=== PATIENT | female | born 1945 | race Caucasian/White ===

== ENCOUNTER 2017-03-12 12:32 | Emergency (ER) | payer OTHER ==
[~2017-03-12 12:32] MED LIST: ACET PO; AMOXICILLIN500 MG PO; ASPIRIN81 M1 PO; ATIVAN2 MG; ATIVAN2 MG PO; B12; BUTALBITAL PO; CALCIUM500 M1 PO; CARAFATE1 G1 PO; CARVEDILOL6.25 MG; CARVEDILOL6.25 MG PO; CHEWABLE ASPIRI81 MG PO; CIPROFLOXACIN500 MG PO; COREG12.5 M1 PO; COREG6.25 MG; COREG6.25 MG PO; CYMBALTA60 MG; CYMBALTA60 MG PO; DIFLUCAN150 MG PO; EXELON4.6 MG/24 TD; FISH OIL 10001000 MG; FISH OIL1 IU PO; FOLIC ACID1 MG PO; FOLIC ACID800 MCG; HYDROCODONE BIT1 T11 PO; IRON325 M1 PO; KLONOPIN1 MG PO; LORAZEPAM1 MG PO; MACROBID100 M1 PO; MAGNESIUM250 M2 PO; NORCO 5-325 TA1 EACH PO; OMEPRAZOLE DR20 MG PO; PRAVACHOL; PRAVACHOL40 MG PO; PRILOSEC40 MG PO; PRINIVIL10 MG PO; PROTONIX40 MG PO; RESTASIS0.05% OP; ST. JOSEPH81 MG; TRAMADOL HCL50 MG PO; VICODIN 5/500 505 MG; VICODIN ES 7501 TAB PO; VIT D; VITAMIN D1000 IU PO; VITAMIN D2000 IU PO; VITAMIN D5000 I1 PO; ZANTAC 150150 MG PO; ZANTAC150 MG PO; ZOFRAN4 MG PO; Zofran4 MG PO; [UNRECOGNIZED DRUG - OTHER]
[2017-03-12] MEDS ORDERED: PREDNISONE5 MG PO (12:37)
[2017-03-12] MEDS ORDERED: DULOXETINE HCL60 MG PO (12:38)
[2017-03-12 13:09] LABS: BASO % 0.6 % (0.0-1.0); EOS # 0.1 10*3/uL (0.0-0.4); EOS % 1.5 % (1.0-4.0); HEMATOCRIT 32.3 % (37.0-47.0); HEMOGLOBIN 10.6 g/dl (12.0-16.0); LYMPH # 1.4 10*3/uL (1.3-4.4); LYMPH % 18.8 % (27.0-41.0); MEAN CELL VOLUME 100.9 fl (81.0-99.0); MEAN CORPUSCULAR HGB 33.1 pg (27.0-31.0); MEAN CORPUSCULAR HGB CONC 32.8 g/dl (33.0-37.0); MEAN PLATELET VOLUME 9.6 fl (9.6-12.3); MONO # 0.5 10*3/uL (0.1-1.0); MONO % 7.1 % (3.0-9.0); NEUT # 5.2 10*3/uL (2.3-7.9); NEUT % 71.7 % (47.0-73.0); PLATELET COUNT AUTOMATED 265 10*3/uL (130-400); RED CELL DISTRI WIDTH 11.8 % (0-14.5); WHITE BLOOD COUNT 7.2 10*3/uL (4.8-10.8)
[2017-03-12 13:18] LABS: INTERNATIONAL NORM RATIO 1.1 (2.0-3.5); PROTHROMBIN TIME 11.4 SECONDS (9.0-12.4)
[2017-03-12 13:28] LABS: ALBUMIN 4.1 gm/dl (3.1-4.5); ALKALINE PHOSPHATASE 52 U/L (45-117); BILIRUBIN, TOTAL 0.6 mg/dl (0.2-1.0); BUN 10 mg/dl (7-24); CARBON DIOXIDE 30 mmol/L (21-32); CHLORIDE 101 mmol/L (98-107); CKMB 2.9 ng/ml (0.5-3.6); CPK 93 U/L (26-192); EST GLOM FILT AFRICAN AMERICAN > 60 ml/min; GLUCOSE 100 mg/dL (65-99); MAGNESIUM 2.2 mg/dL (1.5-2.1); POTASSIUM 3.8 mmol/L (3.5-5.1); SGOT/AST 24 IU/L (3-35); SGPT/ALT 21 U/L (12-78); SODIUM 138 mmol/L (136-145); TOTAL PROTEIN 6.6 gm/dL (6.4-8.2)
[2017-03-12 13:31] LABS: C-REACTIVE PROTEIN < 0.29 MG/DL (0-0.3); TROPONIN I < 0.015 ng/ml (<0.045)
[2017-03-12] MEDS ORDERED: ZOFRAN ODT4 MG SL (14:41)
== END 2017-03-12 14:48 | disposition home or self-care (01) ==
LOC: ED 12:32
PROVIDERS: Emergency Medicine
DX: S06.0X0A Concussion without loss of consciousness, initial encounter (principal); F17.200 Nicotine dependence, unspecified, uncomplicated; Z88.2 Allergy status to sulfonamides; Z88.6 Allergy status to analgesic agent; W22.8XXA Striking against or struck by other objects, initial encounter; Y93.89 Activity, other specified; Y92.9 Unspecified place or not applicable; Y99.9 Unspecified external cause status

== ENCOUNTER 2017-04-07 11:55 | Emergency (ER) | payer OTHER ==
[~2017-04-07 11:55] MED LIST changes: +DULOXETINE HCL60 MG PO; +PREDNISONE5 MG PO; +ZOFRAN ODT4 MG SL
[2017-04-07 14:53] LABS: BASO % 0.1 % (0.0-1.0); EOS # 0.2 10*3/uL (0.0-0.4); EOS % 2.3 % (1.0-4.0); HEMOGLOBIN 6.7 g/dl (12.0-16.0); IG # 0.1 10*3/uL (0.0-0.1); LYMPH # 1.8 10*3/uL (1.3-4.4); LYMPH % 18.3 % (27.0-41.0); MEAN CELL VOLUME 103.4 fl (81.0-99.0); MEAN CORPUSCULAR HGB CONC 31.9 g/dl (33.0-37.0); MEAN PLATELET VOLUME 9.6 fl (9.6-12.3); MONO # 1.2 10*3/uL (0.1-1.0); MONO % 12.4 % (3.0-9.0); NEUT # 6.4 10*3/uL (2.3-7.9); NEUT % 66.4 % (47.0-73.0); PLATELET COUNT AUTOMATED 253 10*3/uL (130-400); RED BLOOD COUNT 2.03 10*6/uL (4.10-5.10); RED CELL DISTRI WIDTH 11.9 % (0-14.5); WHITE BLOOD COUNT 9.6 10*3/uL (4.8-10.8)
[2017-04-07 15:12] LABS: ALBUMIN 3.5 gm/dl (3.1-4.5); ALKALINE PHOSPHATASE 65 U/L (45-117); BILIRUBIN, TOTAL 0.3 mg/dl (0.2-1.0); BUN 15 mg/dl (7-24); CARBON DIOXIDE 30 mmol/L (21-32); CHLORIDE 100 mmol/L (98-107); EST GLOM FILT AFRICAN AMERICAN > 60 ml/min; GLUCOSE 106 mg/dL (65-99); POTASSIUM 4.3 mmol/L (3.5-5.1); SGOT/AST 26 IU/L (3-35); SGPT/ALT 29 U/L (12-78); SODIUM 138 mmol/L (136-145); TOTAL PROTEIN 6.1 gm/dL (6.4-8.2)
== END 2017-04-07 17:17 | disposition short-term general hospital (02) ==
LOC: ED 11:55
PROVIDERS: Nurse Practitioner Family
DX: S92.001A Unspecified fracture of right calcaneus, initial encounter for closed fracture (principal); S82.831A Other fracture of upper and lower end of right fibula, initial encounter for closed fracture; D64.9 Anemia, unspecified; M54.2 Cervicalgia; R51 Headache; Z88.1 Allergy status to other antibiotic agents; Z88.6 Allergy status to analgesic agent; Z79.899 Other long term (current) drug therapy; M25.551 Pain in right hip; W11.XXXA Fall on and from ladder, initial encounter; Y93.9 Activity, unspecified; Y92.9 Unspecified place or not applicable; Y99.9 Unspecified external cause status

== ENCOUNTER 2017-04-12 16:43 | Inpatient (IN) | payer OTHER ==
[2017-04-12] VITALS (9 sets, daily range): BP systolic 100–128; BP diastolic 50–62
[~2017-04-12] VITALS: Ht 160 cm; Wt 43.2 kg
--- NOTE | ~2017-04-12 | CON ---
[place], [place] REPORT OF CONSULTATION NAME: KAMILA MICHAELS UNIT #: [id number] ROOM: 411 DOCTOR: YAZAN REHMANJAE BIRTHDATE: [birth year] DOS: HISTORY OF PRESENT ILLNESS: A 71-year-old patient who presented with chief complaint of abdominal pain, epigastric distress, falling episode. She had CT scan of the head done. No intracranial pathology. Lumbar spine, multilevel degenerative changes, laminectomies. CBC differential, H and H has been as low as 6 and 21, macrocytic. Comprehensive metabolic panel: BUN and creatinine 15 and 1.0. Venous extremities study has been complex Escobedo's cyst, 4 x 2, no evidence of DVT, status post transfusion to 8 and 24, troponin negative. INR 1.1. Chest x-ray, no pneumonia. PAST MEDICAL HISTORY: Weakness, hypercholesterolemia, anemia, hypertension, hyperlipidemia, cervical fractures. PAST SURGICAL HISTORY: Laminectomy, D and C, thyroidectomy. SOCIAL HISTORY: Nonsmoker, nonalcohol consumer. FAMILY HISTORY: Noncontributory. ALLERGIES: ____ medications, SULFA AND IBUPROFEN. MEDICATIONS: List has been reviewed. REVIEW OF SYSTEMS: HEENT: Denies double vision, blurred vision. RESPIRATORY: Denies acute shortness of breath. CARDIOVASCULAR: Denies acute chest pain. PHYSICAL EXAMINATION: HEENT: Head normocephalic, nontraumatic. Mouth and buccal mucosa benign. NECK: Supple, no thyromegaly. CHEST: Symmetric anatomy. LUNGS: Few scattered rhonchi. HEART: Normal sinus rhythm, no gallop, no murmur. ABDOMEN: Soft. No hepato-organomegaly. Bowel sounds present. No pulsatile masses. EXTREMITIES: Trace pedal edema and few scratch williamson. NEUROLOGIC: Alert, oriented, slow. Labs reviewed, records reviewed, data reviewed. IMPRESSION: Severe anemia, macrocytic in origin. LABORATORY DATA: Has been reviewed. Records have been reviewed. She is status post transfusion. B12 and folate have been normal. Comprehensive metabolic panel has not shown any acute pathology except for slight bilirubin elevation to 1.9. PT/INR again 1.1, platelet count 264, lipase normal. Lactic acid normal. We will organize the thyroid study on her. [place], [place] REPORT OF CONSULTATION NAME: KAMILA MICHAELS UNIT #: [id number] ROOM: 411 DOCTOR: YAZAN REHMAN,JAE BIRTHDATE: [birth year] JAE HAND MD CM:CONSTR:REPORT OF CONSULTATION 1441 04/14/17 0106 interface
--- NOTE | ~2017-04-12 | O ---
[place], [place] OPERATIVE NOTE NAME: KAMILA MICHAELS UNIT #: [id number] ROOM: 411 DOCTOR: YAZAN REHMAN,JAE BIRTHDATE: [birth year] DOS: INDICATION: This is a 71-year-old patient who has presented with chief complaint of epigastric abdominal pain, anemia, undergoing investigation. The patient's indices have been macrocytic. The patient has sustained a falling episode and simultaneously was found to be anemic. PROCEDURE: Today's procedure part of investigation is panendoscopy plus biopsy. PREMEDICATION: Versed and Diprivan. SCOPE: Olympus forward-viewing gastroscope Q10 video. REPORT: After putting the patient in the left lateral position and after application of lubricant to the scope, the scope was introduced. Thereafter, under direct visualization, I advanced through the length of esophagus without difficulty. Gastric pouch was entered. Gastritis and gastric erosions seen. Duodenal bulb, second and third part within normal limits. The patient extubated after antral biopsy and tolerated procedure well. IMPRESSION: Atrophic gastritis, status post biopsy of gastric erosions. PLAN AND DISCUSSION: Soft diet, Ensure 1 can ____ meals, Protonix 40 mg daily p.o. Outpatient follow up for future colonoscopy. Thank you very much indeed. I recommended thyroid study to be done and this would be ordered. JAE HAND MD CM:OPRECORD:OPERATIVE NOTE [id number] JAE HAND MD 04/13/17 1830 interface
[2017-04-12] MEDS ORDERED: PREDNISONE5 MG PO (16:46)
[2017-04-12] MEDS ORDERED: CARVEDILOL12.5 MG PO (16:47)
[2017-04-12 17:08] LABS: MEAN CELL VOLUME 101.3 fl (81.0-99.0); MEAN CORPUSCULAR HGB 31.6 pg (27.0-31.0); MEAN CORPUSCULAR HGB CONC 31.2 g/dl (33.0-37.0); MEAN PLATELET VOLUME 9.4 fl (9.6-12.3); PLATELET COUNT AUTOMATED 258 10*3/uL (130-400); RED BLOOD COUNT 1.55 10*6/uL (4.10-5.10); RED CELL DISTRI WIDTH 12.5 % (0-14.5)
[2017-04-12 17:13] LABS: HEMATOCRIT 15.7 % (37.0-47.0); HEMOGLOBIN 4.9 g/dl (12.0-16.0)
[2017-04-12 17:23] LABS: BUN 12 mg/dl (7-24); CARBON DIOXIDE 26 mmol/L (21-32); CHLORIDE 100 mmol/L (98-107); EST GLOM FILT AFRICAN AMERICAN > 60 ml/min; GLUCOSE 129 mg/dL (65-99); SODIUM 138 mmol/L (136-145)
[2017-04-12 17:35] LABS: LYMPHOCYTE # 0.5 10*3/uL (1.3-4.4); MONOCYTE # 0.9 10*3/uL (0.1-1.0); NEUTROPHIL # 4.6 10*3/uL (2.3-7.9); NEUTROPHILS 76 % (47-73); TOTAL CELLS COUNTED 100 #CELLS
[2017-04-12 17:36] LABS: HYPOCHROMIA MODERATE; PLATELET SUFFICIENCY NORMAL (NORMAL); POLYCHROMASIA SLIGHT
[2017-04-12 18:11] LABS: INTERNATIONAL NORM RATIO 1.1 (2.0-3.5); PROTHROMBIN TIME 11.3 SECONDS (9.0-12.4)
[2017-04-13] VITALS (9 sets, daily range): BP systolic 108–130; BP diastolic 50–57
[2017-04-13 01:29] LABS: HEMATOCRIT 23.9 % (37.0-47.0)
[2017-04-13 05:58] LABS: BASO % 0.3 % (0.0-1.0); EOS # 0.1 10*3/uL (0.0-0.4); EOS % 1.2 % (1.0-4.0); HEMATOCRIT 24.6 % (37.0-47.0); HEMOGLOBIN 8.2 g/dl (12.0-16.0); LYMPH # 0.7 10*3/uL (1.3-4.4); MEAN CORPUSCULAR HGB 30.8 pg (27.0-31.0); MEAN CORPUSCULAR HGB CONC 33.3 g/dl (33.0-37.0); MEAN PLATELET VOLUME 9.6 fl (9.6-12.3); MONO # 0.9 10*3/uL (0.1-1.0); MONO % 11.6 % (3.0-9.0); NEUT # 5.8 10*3/uL (2.3-7.9); NEUT % 77.4 % (47.0-73.0); PLATELET COUNT AUTOMATED 264 10*3/uL (130-400); RED BLOOD COUNT 2.66 10*6/uL (4.10-5.10); RED CELL DISTRI WIDTH 16.8 % (0-14.5); RETICULOCYTE % 4.88 % (0.50-2.50); WHITE BLOOD COUNT 7.4 10*3/uL (4.8-10.8)
[2017-04-13 06:01] LABS: IRF 30.8 % (2.4-13.3); MEAN CELL VOLUME 92.5 fl (81.0-99.0); RET-He 26.2 pg (32.1-37.9)
[2017-04-13 06:12] LABS: HEMOGLOBIN A1c 4.9 % (4.8-5.6)
[2017-04-13 06:30] LABS: ALBUMIN 2.6 gm/dl (3.1-4.5); ALKALINE PHOSPHATASE 60 U/L (45-117); BILIRUBIN, TOTAL 1.9 mg/dl (0.2-1.0); BUN 11 mg/dl (7-24); CARBON DIOXIDE 26 mmol/L (21-32); CHLORIDE 100 mmol/L (98-107); CHOLESTEROL 128 mg/dL (<200); EST GLOM FILT AFRICAN AMERICAN > 60 ml/min; GLUCOSE 81 mg/dL (65-99); HDL CHOLESTEROL 53 mg/dl (40-60); INTERNATIONAL NORM RATIO 1.1 (2.0-3.5); IRON 149 ug/dL (50-170); LDL CHOLESTEROL 55 mg/dL (9-159); MAGNESIUM 1.9 mg/dL (1.5-2.1); PHOSPHOROUS 2.7 mg/dL (2.5-4.9); POTASSIUM 3.9 mmol/L (3.5-5.1); PROTHROMBIN TIME 11.2 SECONDS (9.0-12.4); SGOT/AST 30 IU/L (3-35); SGPT/ALT 24 U/L (12-78); SODIUM 135 mmol/L (136-145); TOTAL PROTEIN 5.5 gm/dL (6.4-8.2); TRIGLYCERIDES 100 mg/dl (<150); VLDL CHOLESTEROL 20 mg/dL (6-40)
[2017-04-13 07:14] LABS: FERRITIN 241.5 ng/mL (10.0-291.0); VITAMIN D, 25-HYDROXY 91.8 ng/mL (30-100)
[2017-04-13 07:15] LABS: FOLIC ACID 11.24 ng/mL (>5.38)
[2017-04-14] VITALS: BP 146/71
[2017-04-14 06:04] LABS: BASO % 0.3 % (0.0-1.0); EOS % 0.1 % (1.0-4.0); HEMATOCRIT 26.1 % (37.0-47.0); HEMOGLOBIN 8.5 g/dl (12.0-16.0); LYMPH # 0.6 10*3/uL (1.3-4.4); LYMPH % 8.2 % (27.0-41.0); MEAN CELL VOLUME 94.2 fl (81.0-99.0); MEAN CORPUSCULAR HGB 30.7 pg (27.0-31.0); MEAN CORPUSCULAR HGB CONC 32.6 g/dl (33.0-37.0); MEAN PLATELET VOLUME 10.1 fl (9.6-12.3); MONO # 0.7 10*3/uL (0.1-1.0); MONO % 9.7 % (3.0-9.0); NEUT # 5.9 10*3/uL (2.3-7.9); NEUT % 81.1 % (47.0-73.0); PLATELET COUNT AUTOMATED 307 10*3/uL (130-400); RED BLOOD COUNT 2.77 10*6/uL (4.10-5.10); RED CELL DISTRI WIDTH 16.2 % (0-14.5); WHITE BLOOD COUNT 7.2 10*3/uL (4.8-10.8)
[2017-04-14 06:18] LABS: ALBUMIN 2.7 gm/dl (3.1-4.5); ALKALINE PHOSPHATASE 66 U/L (45-117); BILIRUBIN, TOTAL 1.3 mg/dl (0.2-1.0); BUN 13 mg/dl (7-24); CARBON DIOXIDE 27 mmol/L (21-32); CHLORIDE 98 mmol/L (98-107); EST GLOM FILT AFRICAN AMERICAN > 60 ml/min; GLUCOSE 107 mg/dL (65-99); MAGNESIUM 1.9 mg/dL (1.5-2.1); POTASSIUM 4.2 mmol/L (3.5-5.1); SGOT/AST 29 IU/L (3-35); SGPT/ALT 27 U/L (12-78); SODIUM 133 mmol/L (136-145); TOTAL PROTEIN 5.6 gm/dL (6.4-8.2)
[2017-04-14 06:22] LABS: FREE THYROXIN INDEX/T7 1.9 (1.5-5.4); T3 UPTAKE 33 % (31-39); THYROID STIM HORMONE (HS) 0.689 uIU/ml (0.358-4.75)
[2017-04-14 08:00] VITALS: BP 124/64
[2017-04-14 12:00] VITALS: BP 118/74
[2017-04-14 16:00] VITALS: BP 138/67
[2017-04-14 20:00] VITALS: BP 137/63
[2017-04-15] VITALS: BP 100/80
[2017-04-15 06:11] LABS: BASO % 0.2 % (0.0-1.0); EOS % 0.1 % (1.0-4.0); HEMATOCRIT 27.1 % (37.0-47.0); HEMOGLOBIN 8.8 g/dl (12.0-16.0); LYMPH % 11.9 % (27.0-41.0); MEAN CELL VOLUME 95.8 fl (81.0-99.0); MEAN CORPUSCULAR HGB 31.1 pg (27.0-31.0); MEAN CORPUSCULAR HGB CONC 32.5 g/dl (33.0-37.0); MEAN PLATELET VOLUME 10.1 fl (9.6-12.3); MONO % 12.1 % (3.0-9.0); NEUT # 6.3 10*3/uL (2.3-7.9); NEUT % 75.5 % (47.0-73.0); PLATELET COUNT AUTOMATED 346 10*3/uL (130-400); RED BLOOD COUNT 2.83 10*6/uL (4.10-5.10); RED CELL DISTRI WIDTH 16.2 % (0-14.5); WHITE BLOOD COUNT 8.4 10*3/uL (4.8-10.8)
[2017-04-15 06:46] LABS: ALBUMIN 2.8 gm/dl (3.1-4.5); ALKALINE PHOSPHATASE 66 U/L (45-117); BILIRUBIN, TOTAL 1.2 mg/dl (0.2-1.0); BUN 10 mg/dl (7-24); CARBON DIOXIDE 28 mmol/L (21-32); CHLORIDE 102 mmol/L (98-107); EST GLOM FILT AFRICAN AMERICAN > 60 ml/min; GLUCOSE 91 mg/dL (65-99); POTASSIUM 4.4 mmol/L (3.5-5.1); SGOT/AST 24 IU/L (3-35); SGPT/ALT 26 U/L (12-78); SODIUM 139 mmol/L (136-145); TOTAL PROTEIN 5.8 gm/dL (6.4-8.2)
[2017-04-15 08:00] VITALS: BP 121/61
[2017-04-15] MEDS ORDERED: PANTOPRAZOLE SO40 MG PO (08:01)
[2017-04-15] MEDS ORDERED: PREDNISONE5 MG PO ×2 (08:01)
== END 2017-04-15 09:49 | disposition short-term general hospital (02) | DRG 604 ==
LOC: ED 16:43 → 4E 19:37 → EDHOLD 19:37 → ICCU 20:06 → 4E 20:17
PROVIDERS: Internal Medicine; Internal Medicine Hospice and Palliative Medicine; Physician Assistant; Student in an Organized Health Care Education/Training Program
PROC: 30233N1 Transfusion of Nonautologous Red Blood Cells into Peripheral Vein, Percutaneous Approach (ICD-10-PCS; 2017-04-12)
PROC: 0DB68ZX Excision of Stomach, Via Natural or Artificial Opening Endoscopic, Diagnostic (ICD-10-PCS; principal; 2017-04-13)
DX: S70.01XA Contusion of right hip, initial encounter (principal); E43 Unspecified severe protein-calorie malnutrition; E87.1 Hypo-osmolality and hyponatremia; Z68.1 Body mass index [BMI] 19.9 or less, adult; D50.9 Iron deficiency anemia, unspecified; S90.122A Contusion of left lesser toe(s) without damage to nail, initial encounter; R73.9 Hyperglycemia, unspecified; E83.51 Hypocalcemia; I10 Essential (primary) hypertension; K27.9 Peptic ulcer, site unspecified, unspecified as acute or chronic, without hemorrhage or perforation; G89.29 Other chronic pain; E78.5 Hyperlipidemia, unspecified; K29.40 Chronic atrophic gastritis without bleeding; E78.00 Pure hypercholesterolemia, unspecified; R27.0 Ataxia, unspecified; E80.6 Other disorders of bilirubin metabolism; M71.22 Synovial cyst of popliteal space [Baker], left knee; E89.0 Postprocedural hypothyroidism; Z82.0 Family history of epilepsy and other diseases of the nervous system; Z88.2 Allergy status to sulfonamides; Z88.6 Allergy status to analgesic agent; Z79.899 Other long term (current) drug therapy; S92.001G Unspecified fracture of right calcaneus, subsequent encounter for fracture with delayed healing; S82.831G Other fracture of upper and lower end of right fibula, subsequent encounter for closed fracture with delayed healing

== ENCOUNTER 2017-11-21 16:38 | Inpatient (IN) | payer OTHER ==
[~2017-11-21] VITALS: Ht 160 cm; Wt 42.8 kg
[2017-11-21] VITALS (11 sets, daily range): BP systolic 100–135; BP diastolic 51–72
--- NOTE | ~2017-11-21 | O ---
[place], [place] OPERATIVE NOTE NAME: KAMILA MICHAELS UNIT #: [id number] ROOM: 402 DOCTOR: YAZAN REHMANJAE BIRTHDATE: [birth year] DOS: 11/23/2017 INDICATIONS: This is a 72-year-old patient who is presenting with a chief complaint of GI bleed, black tarry stool, severe anemia, hemoglobin of 3, hematocrit of 17, status post multi-transfusion and stabilization. Troponin negative. The patient has been taking iron infusions as outpatient. She is telling us she is not on any blood thinners. She had a panel of blood work done, transfusion done, stabilized and the latest H and H has improved to 9 and 28 with reticulocyte of 3.36. Her comprehensive metabolic panel, electrolyte balance, liver function test normal. BUN and creatinine within normal limits. PAST MEDICAL HISTORY: Associated with anxiety, GERD, hypercholesterolemia, history of peptic ulcer disease, history of nicotine, depression, chronic pain, essential hypertension. PAST SURGICAL HISTORY: Laminectomy, thyroidectomy, D and C. FAMILY HISTORY: Noncontributory. ALLERGIES: SULFA AND IBUPROFEN. MEDICATIONS: List has been reviewed. She has been on famotidine and Sucralfate 1 g q.i.d. PROCEDURE: Today's procedure part of investigation is panendoscopy and colonoscopy. PREMEDICATION: Versed and Diprivan. SCOPE: Olympus forward-viewing gastroscope Q10 video. REPORT: After putting the patient in left lateral position and application of lubricant to the scope, the scope was introduced. Thereafter, under direct visualization, advanced through the length of esophagus without difficulty. There is no evidence of varicosities or bleeding in the esophagus. Gastric pouch was entered. Multiple small ulcerations, which signifies that the patient most likely has been taking some kind of nonsteroidal anti-inflammatories or aspirin products. Photographed biopsy from margin of 1 was obtained. Duodenal bulb, second and third part within normal limit. The patient extubated, tolerated procedure well. IMPRESSION: Multiple small antral ulcerations and erosions. PLAN AND DISCUSSION: We are going to proceed with colonoscopy. The patient presents with anemia, undergoing investigation. The patient has been found to have multiple small antral ulceration, erosions. Today's [place], [place] OPERATIVE NOTE NAME: KAMILA MICHAELS UNIT #: [id number] ROOM: 402 DOCTOR: YAZAN REHMAN,JAE BIRTHDATE: [birth year] procedure part of investigation is colonoscopy. PREMEDICATION: Versed and Diprivan. SCOPE: Olympus folding colonoscope 10L video. REPORT: After putting the patient in left lateral position and application of lubricant to the scope, the scope was introduced. Thereafter, under direct visualization, advanced through the length of colon with difficulty. Difficulty being severe tortuosity of sigmoid colon, splenic colon and particularly hepatic flexure. Base of cecum; however, approach, appendiceal orifice identified, photographed. Air was suctioned out. Gradually, patient extubated, tolerated procedure well. IMPRESSION: Diverticulosis, severe tortuosity of the colon. Otherwise, no gross pathology was identified to be responsible for blood loss anemia. PLAN AND DISCUSSION: We are going to observe follow up H and H. We are going to assure adequate supplementation of iron supply. Her reticulocyte count has been normal. Her guaiac has been positive most likely because of the upper GI contribution to bleeding. Lactic acid has been normal, folate and B12 are within normal limits. Unfortunately, we do not have a serum iron level. This is going to be organized. Thank you very much indeed. As far as the source of GI bleed and blood loss, so far upper GI has to be considered responsible for the chronic blood loss. The possibility of a small bowel angiodysplastic lesion cannot be ruled out. Once patient on adequate PPI or H2 erin to eradicate ulcers. If she continues to have manifestation of anemia, then a capsule endoscopy of the small bowel is going to be organized. At the present time, we are going to continue with Carafate and we are going to increase her Pepcid to 40 mg b.i.d. JAE HAND MD CM:OPRECORD:OPERATIVE NOTE [id number] JAE HAND MD 11/23/17 1320 interface
[~2017-11-21 16:38] MED LIST changes: +CARVEDILOL12.5 MG PO; +PANTOPRAZOLE SO40 MG PO
[2017-11-21 17:28] LABS: HEMATOCRIT 13.2 % (37.0-47.0); HEMOGLOBIN 3.8 g/dl (12.0-16.0)
[2017-11-21 17:31] LABS: ACT PARTIAL THROMBO TIME 24.7 SECONDS (20.8-31.5); INTERNATIONAL NORM RATIO 1.2 (2.0-3.5)
[2017-11-21 17:45] LABS: ALBUMIN 3.4 gm/dl (3.1-4.5); CREATININE 1.23 mg/dL (0.55-1.02); POTASSIUM 4.2 mmol/L (3.5-5.1); TOTAL PROTEIN 6.1 gm/dL (6.4-8.2)
[2017-11-21] MEDS ORDERED: PEPCID20 MG PO (19:22)
[2017-11-21] MEDS ORDERED: CARAFATE1 GM PO (19:23)
[2017-11-21] MEDS ORDERED: LISINOPRIL20 MG PO (19:24)
[2017-11-21] MEDS ORDERED: RESTASIS1 EACH OP (19:24)
[2017-11-21] MEDS ORDERED: COREG12.5 M1 PO (19:24)
[2017-11-21] MEDS ORDERED: MULTIVITAMINS1 EAC5 PO (19:25)
[2017-11-21] MEDS ORDERED: VITAMIN B COMP1 EAC1 PO (19:26)
[2017-11-21] MEDS ORDERED: VITAMIN C500 M6 PO (19:26)
[2017-11-21] MEDS ORDERED: ALEVE220 MG PO (19:28)
[2017-11-21] MEDS ORDERED: TYLENOL325 M2 PO (19:28)
[2017-11-22] VITALS (12 sets, daily range): BP systolic 81–134; BP diastolic 41–74
[2017-11-22 02:17] LABS: BASO % 0.2 % (0.0-1.0); EOS # 0.2 10*3/uL (0.0-0.4); EOS % 2.3 % (1.0-4.0); LYMPH # 1.3 10*3/uL (1.3-4.4); LYMPH % 14.1 % (27.0-41.0); MEAN CORPUSCULAR HGB 26.5 pg (27.0-31.0); MEAN PLATELET VOLUME 10.1 fl (9.6-12.3); MONO % 10.8 % (3.0-9.0); NEUT # 6.7 10*3/uL (2.3-7.9); NEUT % 72.1 % (47.0-73.0); NUCLEATED RED BLOOD CELL 0.2 % (0.0-0.0); PLATELET COUNT AUTOMATED 259 10*3/uL (130-400); RED BLOOD COUNT 2.64 10*6/uL (4.10-5.10); RED CELL DISTRI WIDTH 16.5 % (0-14.5); WHITE BLOOD COUNT 9.3 10*3/uL (4.8-10.8)
[2017-11-22 02:18] LABS: HEMATOCRIT 21.9 % (37.0-47.0)
[2017-11-22 07:59] LABS: BASO % 0.2 % (0.0-1.0); EOS # 0.2 10*3/uL (0.0-0.4); EOS % 3.3 % (1.0-4.0); HEMATOCRIT 21.6 % (37.0-47.0); HEMOGLOBIN 7.1 g/dl (12.0-16.0); LYMPH # 0.9 10*3/uL (1.3-4.4); MEAN CELL VOLUME 82.4 fl (81.0-99.0); MEAN CORPUSCULAR HGB 27.1 pg (27.0-31.0); MEAN CORPUSCULAR HGB CONC 32.9 g/dl (33.0-37.0); MONO # 0.6 10*3/uL (0.1-1.0); MONO % 11.7 % (3.0-9.0); NEUT # 3.5 10*3/uL (2.3-7.9); NEUT % 67.6 % (47.0-73.0); NUCLEATED RED BLOOD CELL 0.6 % (0.0-0.0); PLATELET COUNT AUTOMATED 256 10*3/uL (130-400); RED BLOOD COUNT 2.62 10*6/uL (4.10-5.10); RED CELL DISTRI WIDTH 16.9 % (0-14.5); WHITE BLOOD COUNT 5.2 10*3/uL (4.8-10.8)
[2017-11-22 08:39] LABS: ALBUMIN 2.9 gm/dl (3.1-4.5); ALKALINE PHOSPHATASE 63 U/L (45-117); BUN 19 mg/dl (7-24); CHLORIDE 106 mmol/L (98-107); CHOLESTEROL 125 mg/dL (<200); HDL CHOLESTEROL 40 mg/dl (40-60); LDL CHOLESTEROL 49 mg/dL (9-159); PHOSPHOROUS 2.6 mg/dL (2.5-4.9); POTASSIUM 3.6 mmol/L (3.5-5.1); SGOT/AST 13 IU/L (3-35); SGPT/ALT 12 U/L (12-78); SODIUM 139 mmol/L (136-145); TOTAL PROTEIN 5.3 gm/dL (6.4-8.2); TRIGLYCERIDES 181 mg/dl (<150); VLDL CHOLESTEROL 36 mg/dL (6-40)
[2017-11-22 09:24] LABS: VITAMIN D, 25-HYDROXY 40.7 ng/mL (30-100)
[2017-11-22 13:13] LABS: HEMOGLOBIN 8.7 g/dl (12.0-16.0)
[2017-11-23] VITALS: BP 150/72
[2017-11-23 07:05] LABS: BASO % 0.8 % (0.0-1.0); EOS # 0.2 10*3/uL (0.0-0.4); EOS % 4.3 % (1.0-4.0); HEMATOCRIT 28.5 % (37.0-47.0); HEMOGLOBIN 9.3 g/dl (12.0-16.0); LYMPH # 1.1 10*3/uL (1.3-4.4); LYMPH % 21.2 % (27.0-41.0); MEAN CELL VOLUME 83.8 fl (81.0-99.0); MEAN CORPUSCULAR HGB 27.4 pg (27.0-31.0); MEAN CORPUSCULAR HGB CONC 32.6 g/dl (33.0-37.0); MEAN PLATELET VOLUME 10.4 fl (9.6-12.3); MONO # 0.8 10*3/uL (0.1-1.0); MONO % 15.9 % (3.0-9.0); NEUT % 57.4 % (47.0-73.0); PLATELET COUNT AUTOMATED 266 10*3/uL (130-400); RED CELL DISTRI WIDTH 17.2 % (0-14.5); WHITE BLOOD COUNT 5.2 10*3/uL (4.8-10.8)
[2017-11-23 07:45] LABS: ALKALINE PHOSPHATASE 70 U/L (45-117); BUN 10 mg/dl (7-24); CHLORIDE 107 mmol/L (98-107); CREATININE 0.66 mg/dL (0.55-1.02); PHOSPHOROUS 3.5 mg/dL (2.5-4.9); POTASSIUM 3.5 mmol/L (3.5-5.1); SGOT/AST 16 IU/L (3-35); SGPT/ALT 20 U/L (12-78); SODIUM 140 mmol/L (136-145); TOTAL PROTEIN 5.6 gm/dL (6.4-8.2)
[2017-11-23 08:00] VITALS: BP 143/61
[2017-11-23 09:30] VITALS: BP 133/33
[2017-11-23 12:19] VITALS: BP 121/56
[2017-11-23 12:20] LABS: RETICULOCYTE % 3.36 % (0.50-2.50)
[2017-11-23 12:34] VITALS: BP 128/59
[2017-11-23 12:50] VITALS: BP 128/59
[2017-11-23] MEDS ORDERED: SLOW RELEASE I159 MG PO (15:02)
[2017-11-23] MEDS ORDERED: PANTOPRAZOLE SO40 MG PO (15:02)
== END 2017-11-23 15:30 | disposition home or self-care (01) | DRG 377 ==
LOC: ED 16:38 → EDHOLD 17:42 → ICCU 17:42 → EDHOLD 18:00 → ICCU 18:16 → 4E 11-22 17:23
PROVIDERS: Emergency Medicine; Family Medicine; Internal Medicine Gastroenterology; Internal Medicine Hospice and Palliative Medicine
PROC: 30253N1 (ICD-10-PCS; 2017-11-21)
PROC: 0DB78ZX Excision of Stomach, Pylorus, Via Natural or Artificial Opening Endoscopic, Diagnostic (ICD-10-PCS; principal; 2017-11-23)
PROC: 0DJD8ZZ Inspection of Lower Intestinal Tract, Via Natural or Artificial Opening Endoscopic (ICD-10-PCS; 2017-11-23)
DX: K29.01 Acute gastritis with bleeding (principal); N17.0 Acute kidney failure with tubular necrosis; E87.2 Acidosis; E44.0 Moderate protein-calorie malnutrition; Z68.1 Body mass index [BMI] 19.9 or less, adult; K57.31 Diverticulosis of large intestine without perforation or abscess with bleeding; E67.8 Other specified hyperalimentation; D50.9 Iron deficiency anemia, unspecified; E78.5 Hyperlipidemia, unspecified; E89.0 Postprocedural hypothyroidism; E83.41 Hypermagnesemia; R07.9 Chest pain, unspecified; R73.9 Hyperglycemia, unspecified; K21.9 Gastro-esophageal reflux disease without esophagitis; F32.9 Major depressive disorder, single episode, unspecified; F41.1 Generalized anxiety disorder; I10 Essential (primary) hypertension; E78.00 Pure hypercholesterolemia, unspecified; E80.6 Other disorders of bilirubin metabolism; G89.29 Other chronic pain; Z72.0 Tobacco use; Z71.6 Tobacco abuse counseling; Z87.11 Personal history of peptic ulcer disease; Z81.8 Family history of other mental and behavioral disorders; Z84.2 Family history of other diseases of the genitourinary system; Z88.8 Allergy status to other drugs, medicaments and biological substances; Z88.2 Allergy status to sulfonamides; Z79.899 Other long term (current) drug therapy; Z82.49 Family history of ischemic heart disease and other diseases of the circulatory system; Z83.3 Family history of diabetes mellitus

== ENCOUNTER → 2017-12-19 | Outpatient (CLI) | payer OTHER ==
[~2017-12-19] MED LIST changes: +ALEVE220 MG PO; +CARAFATE1 GM PO; +LISINOPRIL20 MG PO; +MULTIVITAMINS1 EAC5 PO; +PEPCID20 MG PO; +RESTASIS1 EACH OP; +SLOW RELEASE I159 MG PO; +TYLENOL325 M2 PO; +VITAMIN B COMP1 EAC1 PO; +VITAMIN C500 M6 PO
== END | disposition home or self-care (01) ==
LOC: LAB 11:20
DX: R19.7 Diarrhea, unspecified (principal)

== ENCOUNTER → 2018-02-20 | Outpatient (CLI) | payer OTHER | END | disposition home or self-care (01) | LOC: LAB 14:22 | DX: R19.7 Diarrhea, unspecified (principal) ==

== ENCOUNTER → 2018-03-14 | Outpatient (CLI) | payer OTHER | END | disposition home or self-care (01) | LOC: LAB 09:47 | DX: K52.9 Noninfective gastroenteritis and colitis, unspecified (principal) ==

== ENCOUNTER → 2018-03-22 | Outpatient (CLI) | payer OTHER | END | disposition home or self-care (01) | LOC: ORTHO 01:42 | DX: S92.001D Unspecified fracture of right calcaneus, subsequent encounter for fracture with routine healing (principal); M24.674 Ankylosis, right foot; M81.0 Age-related osteoporosis without current pathological fracture; Z91.81 History of falling; X58.XXXD Exposure to other specified factors, subsequent encounter ==

== ENCOUNTER → 2018-05-08 | Outpatient (CLI) | payer OTHER | END | disposition home or self-care (01) | LOC: RAD 14:49 | DX: M54.5 Low back pain (principal); M25.551 Pain in right hip; M25.552 Pain in left hip; Z91.81 History of falling ==

== ENCOUNTER → 2018-05-15 | Outpatient (CLI) | payer OTHER ==
[2018-05-15 16:17] LABS: HEMATOCRIT 36.5 % (37.0-47.0); HEMOGLOBIN 11.8 g/dl (12.0-16.0)
== END | disposition home or self-care (01) ==
LOC: LAB 15:28
PROVIDERS: Internal Medicine
DX: D50.0 Iron deficiency anemia secondary to blood loss (chronic) (principal)

== ENCOUNTER 2018-08-20 15:40 | Emergency (ER) | payer OTHER ==
[~2018-08-20] VITALS: Ht 160 cm; Wt 41.7 kg
--- NOTE | ~2018-08-20 | EKG ---
[place], [place] ELECTROCARDIOGRAM REPORT NAME: KAMILA MICHAELS UNIT #: [id number] ROOM: DOCTOR: EPIPHANY DRAFT REPORT BIRTHDATE: [birth year] [facility] Test Date: 2018-08-20 Test Time: 16:19:13 Pat Name: KAMILA MICHAELS Department: Room: Gender: F Ore Sampler: SS RESP : 1945 Requested By: DELIA BENNETT PA-C Order Number: [id number] Reading MD: Breann Gonsalez MD Measurements Intervals [place] Rate: 57 P: 30 IN: 164 QRS: -38 QRSD: 91 T: QT: 481 QTc: 469 Interpretive Statements Sinus rhythm Left axis deviation Probable anterior infarct, age indeterminate Baseline wander in lead(s) II,III,aVF Electronically Signed On 08-23-2018 12:06:33 PDT by Breann Gonsalez MD CM:EKGRPT:ELECTROCARDIOGRAM REPORT [id number] 1206 DELIA BENNETT PA-C EPIPHANY DRAFT REPORT DELIA BENNETT PA-C
[2018-08-20 17:04] LABS: BASO % 0.6 % (0.0-1.0); EOS # 0.2 10*3/uL (0.0-0.4); EOS % 3.6 % (1.0-4.0); HEMATOCRIT 33.8 % (37.0-47.0); LYMPH # 1.2 10*3/uL (1.3-4.4); LYMPH % 19.3 % (27.0-41.0); MEAN CELL VOLUME 106.3 fl (81.0-99.0); MEAN CORPUSCULAR HGB 34.6 pg (27.0-31.0); MEAN CORPUSCULAR HGB CONC 32.5 g/dl (33.0-37.0); MEAN PLATELET VOLUME 9.4 fl (9.6-12.3); MONO # 0.5 10*3/uL (0.1-1.0); MONO % 8.5 % (3.0-9.0); NEUT # 4.3 10*3/uL (2.3-7.9); NEUT % 67.7 % (47.0-73.0); PLATELET COUNT AUTOMATED 305 10*3/uL (130-400); RED BLOOD COUNT 3.18 10*6/uL (4.10-5.10); RED CELL DISTRI WIDTH 12.3 % (0-14.5); WHITE BLOOD COUNT 6.3 10*3/uL (4.8-10.8)
[2018-08-20 17:14] LABS: INTERNATIONAL NORM RATIO 1.1 (2.0-3.5)
[2018-08-20 17:22] LABS: ALKALINE PHOSPHATASE 95 U/L (45-117); BUN 17 mg/dl (7-24); CHLORIDE 101 mmol/L (98-107); CREATININE 0.73 mg/dL (0.55-1.02); POTASSIUM 3.8 mmol/L (3.5-5.1); SGOT/AST 15 IU/L (3-35); SGPT/ALT 18 U/L (12-78); SODIUM 134 mmol/L (136-145); TOTAL PROTEIN 7.2 gm/dL (6.4-8.2)
[2018-08-20 17:30] LABS: TROPONIN I < 0.015 ng/ml (<0.045)
== END 2018-08-20 19:46 | disposition home or self-care (01) ==
LOC: ED 15:40
PROVIDERS: Physician Assistant
DX: M79.602 Pain in left arm (principal); M54.2 Cervicalgia; M25.512 Pain in left shoulder; I50.9 Heart failure, unspecified; F17.210 Nicotine dependence, cigarettes, uncomplicated; Z88.2 Allergy status to sulfonamides; Z88.8 Allergy status to other drugs, medicaments and biological substances; Z79.899 Other long term (current) drug therapy

== ENCOUNTER 2019-06-12 11:46 | Inpatient (IN) | payer OTHER ==
[~2019-06-12] VITALS: Ht 160 cm; Wt 44.5 kg
[2019-06-12] VITALS (17 sets, daily range): BP systolic 129–157; BP diastolic 58–74
--- NOTE | ~2019-06-12 | O ---
[place], [place] OPERATIVE NOTE NAME: KAMILA MICHAELS UNIT #: [id number] ROOM: [facility] DOCTOR: JAE HAND MD BIRTHDATE: [birth year] DOS: INDICATIONS: The patient has presented with a hemoglobin of 3, status post nonsteroidal anti-inflammatory and aspirin intake. Consultation has been dictated. Status post multi-transfusion to hemoglobin of 7+ and 23+. PROCEDURE: Today's procedure part of investigation is panendoscopy plus biopsy. PREMEDICATION: Propofol. SCOPE: Olympus forward-viewing gastroscope Q10 video. REPORT: After putting the patient in left lateral position and application of lubricant to the scope, the scope was introduced. Thereafter, under direct visualization, advanced through the length of esophagus without difficulty. Entered into gastric pouch. Multi-antral ulcerations, large and small. The largest 2 cm in length, 1 cm in width. Multiple linear and location, mostly located in the antral anatomy 1 cm to 2 cm proximal to pyloric ring. Duodenal bulb, second and third part are free of ulcer. Scope was withdrawn. GI reflection of the scope reveals cardia to be benign. Air was suctioned out. The patient was extubated and tolerated the procedure well. IMPRESSION: Multi-gastric ulceration at antral location, gastritis, status post biopsy. This is most likely source of gastrointestinal bleed in this patient and blood loss secondary to aspirin and nonsteroidal anti-inflammatory product. PLAN AND DISCUSSION: Protonix 40 mg IV b.i.d., "sucralfate 2 grams slurry 2 hours at meals and at bedtime. Today, we are going to give her ice cream, milk shake, ice water diet to allow the medication to take effect adequately from tomorrow, we can increase to full liquid bland in a next day or two soft diet bland and daily H and H and this patient eventually needs a colonoscopic evaluation in future as well. Thank you very much indeed. [place], [place] OPERATIVE NOTE NAME: KAMILA MICHAELS UNIT #: [id number] ROOM: [facility] DOCTOR: JAE HAND MD BIRTHDATE: [birth year] JAE HNAD MD CM:OPRECORD:OPERATIVE NOTE 1556 1636 JAE HAND MD 06/13/19 1637 interface
--- NOTE | ~2019-06-12 | EKG ---
[place], [place] ELECTROCARDIOGRAM REPORT NAME: KAMILA MICHAELS UNIT #: [id number] ROOM: [facility] DOCTOR: MARCUS DRAFT REPORT BIRTHDATE: [birth year] [facility] Test Date: 2019-06-12 Test Time: 11:48:55 Pat Name: KAMILA MICHAELS Department: Room: [facility] Gender: F Parachute Harness Rigger: : 1945 Requested By: NATA SAHU Order Number: [id number] Reading MD: Víctor Slade MD Measurements Intervals [place] Rate: 79 P: 70 VT: 158 QRS: -7 QRSD: 91 T: 30 QT: 405 QTc: 465 Interpretive Statements Sinus rhythm Nonspecific ST and T changes Electronically Signed On 06-12-2019 12:10:34 PDT by Víctor Slade MD CM:EKGRPT:ELECTROCARDIOGRAM REPORT 1148 1210 NATA CAGLE DRAFT REPORT NATA SAHU DO
--- NOTE | ~2019-06-12 | CON ---
[place], [place] REPORT OF CONSULTATION NAME: KAMILA MICHAELS UNIT #: [id number] ROOM: [facility] DOCTOR: JAE HAND MD BIRTHDATE: [birth year] DOS: 06/13/2019 GASTROENDOSCOPIC CONSULTATION REPORT HISTORY OF PRESENT ILLNESS: A 74-year-old patient who has presented to Emergency Room with shortness of breath, could not climbing her stairs and she has to be admitted through the Emergency Room after a basic panel of investigation. Her INR was 1.1. Her electrolytes; BUN and creatinine 21 and 1.04. Electrolytes otherwise were balanced. Liver function tests normal. CBC differentially H and H of 03 and 13 with a platelet count of 316. Chest x-ray: Patchy regions of airspace opacity in the region of the right middle lobe representing pulmonary fibrosis, cardiomegaly was noticed. Troponin of 0.015 and H and H follow up after transfusion was improved to 6 and 20 and final H and H improvement after 3 units to 7 and 24. Doppler study of the carotid, 50% of bilateral internal lumen constriction was noticed. PAST SURGICAL HISTORY: Hypercholesterolemia, hypertension, diverticulosis, depression, anxiety and shortness of breath. PAST SURGICAL HISTORY: Laminectomy, thyroidectomy and D and C. SOCIAL HISTORY: Smoker actively, nonalcohol consumer. FAMILY HISTORY: Noncontributory. ALLERGIES: SULFA AND IBUPROFEN. MEDICATIONS: List has been reviewed. REVIEW OF SYSTEMS: HEENT: Denies double vision, blurred vision. RESPIRATORY: Denies shortness of breath. CARDIOVASCULAR: Denies acute chest pain. DIGESTIVE SYSTEM: No hematemesis, no hematochezia. PHYSICAL EXAMINATION: VITAL SIGNS: Frail patient. HEENT: Head normocephalic, nontraumatic. Mouth and buccal mucosa benign. NECK: Supple, no thyromegaly, no cervical lymphadenopathy. CHEST: Symmetric anatomy, equal expansion, COPD pattern. HEART: Normal sinus rhythm, no gallop, no murmur. ABDOMEN: Soft. No hepato-organomegaly. Bowel sounds present. No pulsatile mass. EXTREMITIES: Dry. No cyanosis, no pedal edema. NEUROLOGIC: Alert, oriented to time, place and person. IMPRESSION AND PLAN: Anemia, gastrointestinal bleed is the causes to be ruled out. Workup in progress. Endoscopy has been planned for assessment of source of bleeding. Other adjunctive diagnoses as outlined in paragraph of past medical and surgical history. [place], [place] REPORT OF CONSULTATION NAME: KAMILA MICHAELS UNIT #: [id number] ROOM: [facility] DOCTOR: YAZAN REHMAN,JAE BIRTHDATE: [birth year] I thank you very much indeed. JAE HAND MD CM:CONSTR:REPORT OF CONSULTATION 1539 06/14/19 0302 interface
--- NOTE | ~2019-06-12 | EKG ---
[place], [place] ELECTROCARDIOGRAM REPORT NAME: KAMILA MICHAELS UNIT #: [id number] ROOM: [facility] DOCTOR: MARCUS DRAFT REPORT BIRTHDATE: [birth year] [facility] Test Date: 2019-06-12 Test Time: 18:07:18 Pat Name: KAMILA MICHAELS Department: Room: [facility] Gender: F Dough Raiser: Bibi Hernandez : 1945 Requested By: NATA SAHU Order Number: [id number] Reading MD: Víctor Slade MD Measurements Intervals [place] Rate: 72 P: 55 VA: 164 QRS: -1 QRSD: 82 T: 29 QT: 432 QTc: 473 Interpretive Statements Sinus rhythm Nonspecific T wave abnormality Electronically Signed On 06-13-2019 11:08:13 PDT by Víctor Slade MD CM:EKGRPT:ELECTROCARDIOGRAM REPORT 1807 1108 NATA CAGLE DRAFT REPORT NATA SAHU DO
--- NOTE | ~2019-06-12 | EKG ---
[place], [place] ELECTROCARDIOGRAM REPORT NAME: KAMILA MICHAELS UNIT #: [id number] ROOM: [facility] DOCTOR: MARCUS DRAFT REPORT BIRTHDATE: [birth year] [facility] Test Date: 2019-06-12 Test Time: 15:15:04 Pat Name: KAMILA MICHAELS Department: Room: [facility] Gender: F Make Up Worker: Bibi Hernandez : 1945 Requested By: NATA SAHU Order Number: [id number] Reading MD: Víctor Slade MD Measurements Intervals [place] Rate: 80 P: 64 ND: 165 QRS: -10 QRSD: 88 T: 37 QT: 416 QTc: 481 Interpretive Statements Sinus rhythm Borderline prolonged QT interval now present Electronically Signed On 06-13-2019 4:58:46 PDT by Víctor Slade MD CM:EKGRPT:ELECTROCARDIOGRAM REPORT 1515 0458 NATA CAGLE DRAFT REPORT NATA SAHU DO
[~2019-06-12 11:46] MED LIST changes: +AUGMENTIN 875875 MG PO; +DOXYCYCLINE100 M3 PO; +LISINOPRIL40 MG PO
[2019-06-12 12:23] LABS: MEAN CELL VOLUME 81.4 fl (81.0-99.0); MEAN CORPUSCULAR HGB 19.8 pg (27.0-31.0); MEAN CORPUSCULAR HGB CONC 24.3 g/dl (33.0-37.0); MEAN PLATELET VOLUME 10.5 fl (9.6-12.3); NUCLEATED RED BLOOD CELL 0.3 % (0.0-0.0); PLATELET COUNT AUTOMATED 316 10*3/uL (130-400); RED BLOOD COUNT 1.67 10*6/uL (4.10-5.10); RED CELL DISTRI WIDTH 19.7 % (0-14.5); WHITE BLOOD COUNT 5.9 10*3/uL (4.8-10.8)
[2019-06-12 12:27] LABS: HEMATOCRIT 13.6 % (37.0-47.0); HEMOGLOBIN 3.3 g/dl (12.0-16.0)
--- NOTE | 2019-06-12 12:27 | NUR ---
NOTIFIED BY LAB HEMAGLOBIN 3.[address] ADELINA RODRIGES.
[2019-06-12 12:30] LABS: ACT PARTIAL THROMBO TIME 23.3 SECONDS (20.0-32.1); INTERNATIONAL NORM RATIO 1.1 (2.0-3.5)
[2019-06-12 12:33] LABS: ALBUMIN 3.8 gm/dl (3.1-4.5); ALKALINE PHOSPHATASE 72 U/L (45-117); BUN 21 mg/dl (7-24); CHLORIDE 113 mmol/L (98-107); CREATININE 1.04 mg/dL (0.55-1.02); POTASSIUM 4.5 mmol/L (3.5-5.1); SGOT/AST 15 IU/L (3-35); SGPT/ALT 19 U/L (12-78); SODIUM 142 mmol/L (136-145); TOTAL PROTEIN 6.7 gm/dL (6.4-8.2)
[2019-06-12 12:36] LABS: TROPONIN I < 0.015 ng/ml (<0.045)
[2019-06-12 12:48] LABS: BASOPHILS 1 % (0-1); PLATELET SUFFICIENCY NORMAL (NORMAL); POLYCHROMASIA SLIGHT; TOTAL CELLS COUNTED 100 #CELLS
--- NOTE | 2019-06-12 13:11 | NUR ---
A 74, admitted to ICCU, under the services of AGNIESZKA Garg DO with a diagnosis of SYMPTOMATIC ANEMIA. Chief complaint is CHEST PAIN. Patient arrived via ambulatory from ER. Monitor applied. Initial assessment completed. Vital signs taken and recorded. AGNIESZKA GARG DO notified of admission to the unit. Orders received. See assessment for past medical history, medications and allergies. Patient and/or family oriented to unit. [facility] visitation policy reviewed. Clothing/patient valuable form completed. BHAVANA CALI
[2019-06-12] MEDS ORDERED: LORAZEPAM2 MG PO (13:40)
[2019-06-12] MEDS ORDERED: DICLOFENAC SODI50 M2 PO (13:42)
[2019-06-12] MEDS ORDERED: AZELASTINE137 MCG/0. NAS (13:44)
[2019-06-12] MEDS ORDERED: CYMBALTA60 MG PO (13:45)
[2019-06-12] MEDS ORDERED: REMERON15 M2 PO (13:46)
[2019-06-12] MEDS ORDERED: LEADER EYE ITCH5 ML OP (13:47)
--- NOTE | 2019-06-12 14:20 | NUR ---
BLOOD TRANSFUSION STARTED. PATIENT TOLERATING WELL. NO S/S OF DISTRESS. CALL LIGHT IN REACH. EDUCATED ON SYMPTOMS OF ADVERSE REACTION TO BLOOD TRANSFUSION.
--- NOTE | 2019-06-12 16:38 | NUR ---
DR DOVE NOTIFIED MED REC IS COMPLETED.
--- NOTE | 2019-06-12 17:29 | NUR ---
DR HAND NOTIFIED OF CONSULT. STATES HE WILL CALL BACK.
--- NOTE | 2019-06-12 18:12 | NUR ---
PATIENT SITTING UP IN BED EATING DINNER. NO S/S OF DISTRESS. SECOND UNIT INFUSING AT A RATE OF 125/HR. CALL LIGHT IN REACH.
--- NOTE | 2019-06-12 19:56 | NUR ---
RN IN TO SEE PATIENT AND TO INFORM HER OF DR HAND'S PLAN FOR EGD/COLO IN THE MORNING. PATIENT IS STRONGLY REFUSING TO HAVE A COLONSCOPY. STATES SHE AHS ALREADY HAD ONE AND WILL NOT HAVE ANOTHER. RN TO INFORM DR HAND
--- NOTE | 2019-06-12 20:25 | NUR ---
DR HAND MADE AWARE OF PATIENT REFUSING TO HAVE EGD/COLO. NO NEW ORDERS. WILL D/C ORDERS FOR EGD/COLO.
[2019-06-12 23:09] LABS: HEMATOCRIT 20.2 % (37.0-47.0); HEMOGLOBIN 6.1 g/dl (12.0-16.0)
--- NOTE | 2019-06-12 23:09 | NUR ---
RESIDENT BEATING MACHINE OPERATOR NOTIFIED OF CRITICAL H+H RESULTS.
[2019-06-13] VITALS (12 sets, daily range): BP systolic 119–155; BP diastolic 40–74
--- NOTE | 2019-06-13 00:01 | NUR ---
BLOOD TRANSFUSION STARTED AT THIS TIME, PATIENT TOLERATING WELL. VITAL SIGNS WITHIN NORMAL LIMITS. PATIENT INFORMED OF TRANSFUSION REACTIONS. Informed consent obtained from patient for Blood transfussion Patient identified by arm band. Vital signs recorded. Blood unit number verified by 2 R.N.'s. I.V. site satisfactory. TIM LEÓN
--- NOTE | 2019-06-13 03:00 | NUR ---
TRANSFUSION COMPLETED AT THIS TIME, NO SIGNS OR SYMPTOMS OF A TRANSFUSION REACTION. VITAL SIGNS ALL WITHIN NORMAL LIMITS.
--- NOTE | 2019-06-13 03:11 | NUR ---
PATIENT MEDICATED WITH ZOFRAN PER DRS ORDERS FOR COMPLAINTS OF NAUSEA. PATIENT STATES SHE HASNT REALLY ATE AND IS FEELING SICK TO HER STOMACH. RN WILL MONITOR FOR EFFECTIVENESS
--- NOTE | 2019-06-13 04:45 | NUR ---
PATIENT STATES RELIEF OF NAUSEA AFTER EARLIER MEDICATION. RN WILL CONTINUE TO MONITOR THIS PATIENT
--- NOTE | 2019-06-13 05:49 | NUR ---
TRANSFUSION COMPLETED AT THIS TIME, NO SIGNS OR SYMPTOMS OF A TRANSFUSION REACTION. VITAL SIGNS ALL WITHIN NORMAL LIMITS.
[2019-06-13 06:01] LABS: HEMATOCRIT 24.6 % (37.0-47.0); HEMOGLOBIN 7.7 g/dl (12.0-16.0); MEAN CORPUSCULAR HGB 26.3 pg (27.0-31.0); MEAN CORPUSCULAR HGB CONC 31.3 g/dl (33.0-37.0); MEAN PLATELET VOLUME 10.1 fl (9.6-12.3); NUCLEATED RED BLOOD CELL 0.1 10*3/uL (0.0-0.0); NUCLEATED RED BLOOD CELL 1.5 % (0.0-0.0); RED BLOOD COUNT 2.93 10*6/uL (4.10-5.10); RED CELL DISTRI WIDTH 15.7 % (0-14.5); WHITE BLOOD COUNT 6.1 10*3/uL (4.8-10.8)
[2019-06-13 06:09] LABS: ALBUMIN 3.3 gm/dl (3.1-4.5); BUN 15 mg/dl (7-24); CHLORIDE 112 mmol/L (98-107); CHOLESTEROL 181 mg/dL (<200); CREATININE 0.68 mg/dL (0.55-1.02); HDL CHOLESTEROL 41 mg/dl (40-60); LDL CHOLESTEROL 109 mg/dL (9-159); PHOSPHOROUS 3.6 mg/dL (2.5-4.9); POTASSIUM 3.8 mmol/L (3.5-5.1); SGOT/AST 14 IU/L (3-35); SGPT/ALT 18 U/L (12-78); SODIUM 140 mmol/L (136-145); TRIGLYCERIDES 153 mg/dl (<150); VLDL CHOLESTEROL 31 mg/dL (6-40)
[2019-06-13 06:15] LABS: ALKALINE PHOSPHATASE 66 U/L (45-117)
[2019-06-13 06:32] LABS: PLATELET COUNT AUTOMATED 216 10*3/uL (130-400)
[2019-06-13 06:49] LABS: ACT PARTIAL THROMBO TIME 23.4 SECONDS (20.0-32.1)
[2019-06-13 06:54] LABS: PLATELET SUFFICIENCY NORMAL (NORMAL); TOTAL CELLS COUNTED 100 #CELLS
--- NOTE | 2019-06-13 07:48 | NUR ---
ASSUMED CARE OF PATIENT. ASSESSMENT COMPLETED. PATIENT RESTING IN BED AT THIS TIME. AWAKE AND ALERT, ORIENTED. CRACKLES HEARD IN LUNGS MORE EXTENSIVE THAN YESTERDAY. PATIENT READY TO ORDER BREAKFAST. BREAKFAST ORDER PLACED. PATIENT DENIES ANY DISCOMFORTS, NO S/S OF DISTRESS. STATES SHE WANTS TO GO HOME TODAY IF POSSIBLE. CALL LIGHT IN REACH.
--- NOTE | 2019-06-13 07:59 | NUR ---
Shift chart check completed.
--- NOTE | 2019-06-13 08:30 | NUR ---
Colorer in to talk to patient. Patient states lives at home alone with her family that lives an hour away calling in to check on her. There are "too many" steps in the home. Physician: Dr. Mateo Zamora Pharmacy: [facility] Home health services: none Patient's level of ADLs: minimal assistance Patient has working utilities: yes DME: cane Follow-up physician's appointment after d/c: Patient states she has an appt with Dr. Zamora on June 22. Does patient want to access PORTAL?: no Discharge plan discussed with patient. She lives at home alone. Her father recently . She is independent in her ADLs and uses a cane for ambulation. She does have family members that call to check in on her that are about an hour away. She is looking to move to a smaller house all on one floor. Discussed home health care services and she denies any home needs at this time. When medically stable she will be discharged to home. She is anxious to be discharge. Dr. Okeefe notified. On discharge she states her car is here and she will drive herself. JOSEY PATRICK
--- NOTE | 2019-06-13 08:39 | NUR ---
HOME MEDS CONTINUED.
--- NOTE | 2019-06-13 09:10 | NUR ---
PATIENT SITTING UP IN BED, FINISHED UP BREAKFAST. TOOK ALL MORNING MEDICATIONS DIRECTED. NO S/S OF DISTRESS. CALL LIGHT IN REACH.
--- NOTE | 2019-06-13 10:09 | NUR ---
PATIENT UP OUT OF BED. TOOK FOR A WALK DOWN THE [place]. PATIENT DID WELL WITH HER CANE. VERY LITTLE UNSTEADINESS. PATIENT UP IN RECLINER IN ROOM AT THIS TIME. NO S/S OF DISTRESS. CALL LIGHT IN REACH.
--- NOTE | 2019-06-13 10:39 | NUR ---
DR AARON IN TO SEE THE PATIENT. PATIENT STILL ADAMANTLY REFUSING ANY SCOPES TO VIEW GI TRACT. PATIENT STATES SHE WANTS TO GO HOME AND GO SEE HER PRIMARY ON THE . RISKS EXPLAINED TO PATIENT BY DR AARON.
--- NOTE | 2019-06-13 11:00 | NUR ---
Called to room to speak with patient. She was questioning home health care services. Explained home health care services and she would like to think about it. Will follow up with patient at a later time.
--- NOTE | 2019-06-13 12:27 | NUR ---
PATIENT AGREED TO UNDERGO AN EGD TODAY WITH DR HAND. MADE NPO AND WILL BE LAST TO BE SCOPED TODAY. RESTARTED IV IN LEFT ARM. TOLERATED WELL. NO S/S OF DISTRESS. CALL LIGHT IN REACH. EDUCATED ON NPO STATUS.
--- NOTE | 2019-06-13 12:48 | NUR ---
SURGERY PACKET COMPLETED AND PLACED IN CHART. PATIENT UNDERSTANDS WHAT PROCEDURE IS GOING TO HAPPEN AND AGREES. MEDICAL HISTORY REVIEWED.
--- NOTE | 2019-06-13 14:50 | NUR ---
SURGERY IN TO GET PATIENT. PATIENT OFF UNIT FOR EGD.
--- NOTE | 2019-06-13 16:51 | NUR ---
PATIENT RETURNED FROM SURGERY, ASSESSMENT COMPLETED. NO S/S OF DISTRESS. VSS.
[2019-06-13 16:53] LABS: VITAMIN D, 25-HYDROXY 45.4 ng/mL (30-100)
--- NOTE | 2019-06-13 20:38 | NUR ---
Shift chart check completed.24 HR chart check completed.
[2019-06-14] VITALS: BP 115/55
[2019-06-14 04:00] VITALS: BP 125/57
[2019-06-14 06:08] LABS: BASO # 0.1 10*3/uL (0.0-0.1); BASO % 1.1 % (0.0-1.0); EOS # 0.2 10*3/uL (0.0-0.4); EOS % 3.5 % (1.0-4.0); HEMATOCRIT 27.7 % (37.0-47.0); HEMOGLOBIN 8.5 g/dl (12.0-16.0); LYMPH # 1.1 10*3/uL (1.3-4.4); LYMPH % 23.2 % (27.0-41.0); MEAN CELL VOLUME 85.8 fl (81.0-99.0); MEAN CORPUSCULAR HGB 26.3 pg (27.0-31.0); MEAN CORPUSCULAR HGB CONC 30.7 g/dl (33.0-37.0); MEAN PLATELET VOLUME 10.3 fl (9.6-12.3); MONO # 0.9 10*3/uL (0.1-1.0); MONO % 18.9 % (3.0-9.0); NEUT # 2.4 10*3/uL (2.3-7.9); NEUT % 52.9 % (47.0-73.0); NUCLEATED RED BLOOD CELL 0.7 % (0.0-0.0); PLATELET COUNT AUTOMATED 223 10*3/uL (130-400); RED BLOOD COUNT 3.23 10*6/uL (4.10-5.10); RED CELL DISTRI WIDTH 16.7 % (0-14.5); WHITE BLOOD COUNT 4.6 10*3/uL (4.8-10.8)
[2019-06-14 06:17] LABS: ALBUMIN 3.2 gm/dl (3.1-4.5); ALKALINE PHOSPHATASE 73 U/L (45-117); BUN 9 mg/dl (7-24); CHLORIDE 109 mmol/L (98-107); CREATININE 0.61 mg/dL (0.55-1.02); POTASSIUM 4.2 mmol/L (3.5-5.1); SGOT/AST 16 IU/L (3-35); SGPT/ALT 19 U/L (12-78); SODIUM 139 mmol/L (136-145); TOTAL PROTEIN 6.1 gm/dL (6.4-8.2)
[2019-06-14 08:00] VITALS: BP 152/71
--- NOTE | 2019-06-14 08:15 | NUR ---
Awake and alert. Requesting to go home. Dr. Okeefe in and discussed plan of care w/ pt.
--- NOTE | 2019-06-14 11:53 | NUR ---
Dr. Medina was called to update on h/h . Order recieved to upgrade diet.
[2019-06-14 12:00] VITALS: BP 145/71
--- NOTE | 2019-06-14 12:06 | NUR ---
Dr. Van in to [facility]. pt. expressed wish to go home. Ambulatory in room and up to desk. unplugs monitor and re- plugs on return to bed. Lunch ordered.
[2019-06-14 16:00] VITALS: BP 144/75
--- NOTE | 2019-06-14 16:14 | NUR ---
Pt. advised not to flush w/ BM . Stated she decided to stay today as her stool was dark.
--- NOTE | 2019-06-14 19:29 | NUR ---
ASSUMED CARE OF PATIENT AT THIS TIME. RECEIVED REPORT FROM KALYANI RAYMUNDO RN.
--- NOTE | 2019-06-14 19:58 | NUR ---
PATIENT ASSESSMENT COMPLETED. PATIENT STATES SHE IS FEELING MUCH BETTER THAN SHE WAS YESTERDAY. PATIENT HAS BEEN UP AND ABOUT TODAY ACCORDING TO DAYLIGHT NURSING STAFF. PATIENT HAS CRACKLES ISOLATED TO LLL OF HER LUNG. PATIENT STATES SHE IS UNABLE TO ASSESS THE EXTENT OF HER SHORTNESS OF BREATH SINCE SHE HAS NOT BEEN ABLE TO CLIMB STAIRS TO COMPARE. PATIENT'S VITALS STABLE. NO S/S OF DISTRESS. CALL LIGHT IN REACH.
[2019-06-14 20:00] VITALS: BP 146/76
--- NOTE | 2019-06-14 21:17 | NUR ---
PATIENT RECEIVED NIGHT TIME MEDICATIONS. TOOK MEDICATIONS WITH NO ISSUES NOTED. NO S/S OF DISTRESS. CALL LIGHT IN REACH.
--- NOTE | 2019-06-14 23:48 | NUR ---
PATIENT RECEIVED TYLENOL FOR ACHING BACK RATED 5/10.
[2019-06-15] VITALS: BP 151/64
--- NOTE | 2019-06-15 00:30 | NUR ---
PATIENT RESTING COMFORTABLY IN HER BED. VSS. NO S/S OF DISTRESS. CALL LIGHT WITHIN REACH.
--- NOTE | 2019-06-15 02:09 | NUR ---
PATIENT RESTING IN BED, NO S/S OF DISTRESS. RESP EASY. CALL LIGHT IN REACH.
[2019-06-15 05:13] VITALS: BP 157/82
--- NOTE | 2019-06-15 05:18 | NUR ---
PATIENT RESTING IN BED. NO S/S OF DISTRESS. RESP EASY.
[2019-06-15 05:48] LABS: ALBUMIN 3.1 gm/dl (3.1-4.5); ALKALINE PHOSPHATASE 71 U/L (45-117); BUN 7 mg/dl (7-24); CHLORIDE 110 mmol/L (98-107); CREATININE 0.64 mg/dL (0.55-1.02); POTASSIUM 3.7 mmol/L (3.5-5.1); SGOT/AST 11 IU/L (3-35); SGPT/ALT 16 U/L (12-78); SODIUM 142 mmol/L (136-145); TOTAL PROTEIN 5.8 gm/dL (6.4-8.2)
[2019-06-15 06:34] LABS: BASO # 0.1 10*3/uL (0.0-0.1); EOS # 0.2 10*3/uL (0.0-0.4); EOS % 3.7 % (1.0-4.0); HEMATOCRIT 29.6 % (37.0-47.0); HEMOGLOBIN 8.9 g/dl (12.0-16.0); LYMPH % 18.6 % (27.0-41.0); MEAN CELL VOLUME 86.5 fl (81.0-99.0); MEAN CORPUSCULAR HGB CONC 30.1 g/dl (33.0-37.0); MEAN PLATELET VOLUME 10.9 fl (9.6-12.3); MONO % 19.3 % (3.0-9.0); NUCLEATED RED BLOOD CELL 0.4 % (0.0-0.0); PLATELET COUNT AUTOMATED 218 10*3/uL (130-400); RED BLOOD COUNT 3.42 10*6/uL (4.10-5.10); RED CELL DISTRI WIDTH 17.4 % (0-14.5); WHITE BLOOD COUNT 5.2 10*3/uL (4.8-10.8)
[2019-06-15 07:48] VITALS: BP 157/57
--- NOTE | 2019-06-15 07:52 | NUR ---
Awake and alert. Reminded not to flush BM. Breakfast ordered. Up and about in room.
--- NOTE | 2019-06-15 10:29 | NUR ---
Self care in bathroom, removes and replaces monitor at will. Small opal THOMAS in commode. Pt. states she is going home today.
[2019-06-15] MEDS ORDERED: CARAFATE1 G1 PO (11:15)
[2019-06-15] MEDS ORDERED: PANTOPRAZOLE SO40 MG PO (11:15)
--- NOTE | 2019-06-15 12:38 | NUR ---
Dr. Van in , discussed discharge w/ pt. Dr. Medina was called updated on lab work., Spoke w/ Dr. Van. oK to discharge . IV dc'd instruction given . Voiced understanding . Awaiting meds from pharmacy and lunch for final discharge.
--- NOTE | 2019-06-15 13:20 | NUR ---
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
== END 2019-06-15 12:38 | disposition home or self-care (01) | DRG 377 ==
LOC: ED 11:46 → EDHOLD 12:50 → ICCU 12:50
PROVIDERS: Family Medicine; Student in an Organized Health Care Education/Training Program; ADMIT Emergency Medicine
PROC: 30233N1 Transfusion of Nonautologous Red Blood Cells into Peripheral Vein, Percutaneous Approach (ICD-10-PCS; 2019-06-12)
PROC: 0DB78ZX Excision of Stomach, Pylorus, Via Natural or Artificial Opening Endoscopic, Diagnostic (ICD-10-PCS; principal; 2019-06-13)
DX: K29.71 Gastritis, unspecified, with bleeding (principal); N17.0 Acute kidney failure with tubular necrosis; D62 Acute posthemorrhagic anemia; Z68.1 Body mass index [BMI] 19.9 or less, adult; K25.4 Chronic or unspecified gastric ulcer with hemorrhage; G89.29 Other chronic pain; I11.9 Hypertensive heart disease without heart failure; K44.9 Diaphragmatic hernia without obstruction or gangrene; K21.9 Gastro-esophageal reflux disease without esophagitis; F41.1 Generalized anxiety disorder; E78.00 Pure hypercholesterolemia, unspecified; E78.5 Hyperlipidemia, unspecified; K57.90 Diverticulosis of intestine, part unspecified, without perforation or abscess without bleeding; F17.210 Nicotine dependence, cigarettes, uncomplicated; R63.6 Underweight; R73.9 Hyperglycemia, unspecified; Z53.29 Procedure and treatment not carried out because of patient's decision for other reasons; F32.4 Major depressive disorder, single episode, in partial remission; Z71.6 Tobacco abuse counseling; Z88.2 Allergy status to sulfonamides; Z88.6 Allergy status to analgesic agent; Z82.0 Family history of epilepsy and other diseases of the nervous system; Z83.3 Family history of diabetes mellitus; Z87.11 Personal history of peptic ulcer disease; Z84.2 Family history of other diseases of the genitourinary system; Z79.899 Other long term (current) drug therapy

== ENCOUNTER → 2019-09-18 | Outpatient (CLI) | payer OTHER ==
[~2019-09-18] MED LIST changes: +AZELASTINE137 MCG/0. NAS; +DICLOFENAC SODI50 M2 PO; +LEADER EYE ITCH5 ML OP; +LORAZEPAM2 MG PO; +REMERON15 M2 PO
== END | disposition home or self-care (01) ==
LOC: LAB 14:39
DX: D50.0 Iron deficiency anemia secondary to blood loss (chronic) (principal)

== ENCOUNTER 2019-10-08 10:26 | Inpatient (IN) | payer OTHER ==
[~2019-10-08] VITALS: Ht 157.4 cm; Wt 44.1 kg
[2019-10-08 10:35] VITALS: BP 155/85
[2019-10-08 10:49] LABS: EOS # 0.2 10*3/uL (0.0-0.4); EOS % 3.6 % (1.0-4.0); HEMATOCRIT 31.7 % (37.0-47.0); LYMPH % 23.6 % (27.0-41.0); MEAN CELL VOLUME 87.1 fl (81.0-99.0); MEAN CORPUSCULAR HGB 24.7 pg (27.0-31.0); MEAN CORPUSCULAR HGB CONC 28.4 g/dl (33.0-37.0); MEAN PLATELET VOLUME 9.6 fl (9.6-12.3); MONO # 0.5 10*3/uL (0.1-1.0); NEUT # 2.6 10*3/uL (2.3-7.9); NEUT % 60.6 % (47.0-73.0); PLATELET COUNT AUTOMATED 257 10*3/uL (130-400); RED BLOOD COUNT 3.64 10*6/uL (4.10-5.10); RED CELL DISTRI WIDTH 16.4 % (0-14.5); WHITE BLOOD COUNT 4.2 10*3/uL (4.8-10.8)
[2019-10-08 11:05] LABS: ACT PARTIAL THROMBO TIME 26.4 SECONDS (20.0-32.1)
[2019-10-08 11:06] LABS: ALBUMIN 4.1 gm/dl (3.1-4.5); ALKALINE PHOSPHATASE 77 U/L (45-117); BUN 13 mg/dl (7-24); CHLORIDE 104 mmol/L (98-107); CREATININE 0.81 mg/dL (0.55-1.02); POTASSIUM 4.4 mmol/L (3.5-5.1); SGOT/AST 32 IU/L (3-35); SGPT/ALT 23 U/L (12-78); SODIUM 135 mmol/L (136-145); TOTAL PROTEIN 7.5 gm/dL (6.4-8.2)
[2019-10-08 11:07] LABS: TROPONIN I < 0.015 ng/ml (<0.045)
--- NOTE | 2019-10-08 11:08 | NUR ---
REPORT TO LANDON DAWKINS.
[2019-10-08 11:30] VITALS: BP 159/77
--- NOTE | 2019-10-08 12:20 | NUR ---
A 74, admitted to , under the services of AGNIESZKA Garg DO with a diagnosis of GI BLEED. Chief complaint is DIZZINESS. Patient arrived via bed from ER. Monitor applied. Initial assessment completed. Vital signs taken and recorded. AGNIESZKA GARG DO notified of admission to the unit. Orders received. See assessment for past medical history, medications and allergies. Patient and/or family oriented to unit. [facility] visitation policy reviewed. Clothing/patient valuable form completed. RIRI REICH
[2019-10-08 12:45] VITALS: BP 155/80
[2019-10-08] MEDS ORDERED: VISTARIL25 MG PO (12:45)
[2019-10-08] MEDS ORDERED: LORAZEPAM1 MG PO (12:45)
[2019-10-08] MEDS ORDERED: PROTONIX40 MG PO (12:47)
[2019-10-08] MEDS ORDERED: CARAFATE1 G1 PO (12:48)
[2019-10-08] MEDS ORDERED: VITAMIN D31000 UNI1 PO (12:48)
--- NOTE | 2019-10-08 13:00 | NUR ---
DR HAND UP TO FLOOR AND SEEN PATIENT
[2019-10-08 16:00] VITALS: BP 157/71
[2019-10-08 19:07] LABS: HEMOGLOBIN 7.8 g/dl (12.0-16.0)
--- NOTE | 2019-10-08 19:40 | NUR ---
NOTIFIED OF REPEAT HGB 7.8 (DOWN FROM 9.0) AND HCT 27.0 (DOWN FROM 31.7). PT DENIES ANY S/S OF BLEEDING. WILL MONITOR.
[2019-10-08 20:00] VITALS: BP 146/73
--- NOTE | 2019-10-08 21:21 | NUR ---
PT REQUESTING HOME XANAX THAT SHE TAKES AT BEDTIME. NOTIFIED OF REQUEST. INSTRUCTED TO ORDER IT.
--- NOTE | 2019-10-08 22:09 | NUR ---
PRN XANAX ADMINISTERED PER REQUEST FOR C/O ANXIETY. WILL MONITOR EFFECTIVENESS. CALL LIGHT IN REACH.
[2019-10-09] VITALS: BP 130/80
--- NOTE | 2019-10-09 00:47 | NUR ---
PT ASLEEP IN BED. RESPIRATIONS EASY. NO S/S OF DISTRESS NOTED. WILL MONITOR. CALL LIGHT IN REACH.
[2019-10-09 06:39] LABS: ALBUMIN 3.6 gm/dl (3.1-4.5); ALKALINE PHOSPHATASE 77 U/L (45-117); BUN 9 mg/dl (7-24); CHLORIDE 105 mmol/L (98-107); CREATININE 0.59 mg/dL (0.55-1.02); PHOSPHOROUS 3.4 mg/dL (2.5-4.9); POTASSIUM 3.9 mmol/L (3.5-5.1); SGOT/AST 27 IU/L (3-35); SGPT/ALT 23 U/L (12-78); SODIUM 135 mmol/L (136-145)
[2019-10-09 06:42] LABS: HEMATOCRIT 31.4 % (37.0-47.0); HEMOGLOBIN 8.9 g/dl (12.0-16.0); MEAN CELL VOLUME 85.3 fl (81.0-99.0); MEAN CORPUSCULAR HGB 24.2 pg (27.0-31.0); MEAN CORPUSCULAR HGB CONC 28.3 g/dl (33.0-37.0); MEAN PLATELET VOLUME 10.8 fl (9.6-12.3); PLATELET COUNT AUTOMATED 278 10*3/uL (130-400); RED BLOOD COUNT 3.68 10*6/uL (4.10-5.10); RED CELL DISTRI WIDTH 16.1 % (0-14.5); WHITE BLOOD COUNT 4.4 10*3/uL (4.8-10.8)
[2019-10-09 06:57] LABS: BASO # 0.1 10*3/uL (0.0-0.1); BASO % 1.1 % (0.0-1.0); EOS # 0.2 10*3/uL (0.0-0.4); EOS % 5.3 % (1.0-4.0); LYMPH # 1.1 10*3/uL (1.3-4.4); MONO # 0.6 10*3/uL (0.1-1.0); MONO % 13.3 % (3.0-9.0); NEUT # 2.4 10*3/uL (2.3-7.9); NEUT % 54.1 % (47.0-73.0)
[2019-10-09 08:00] VITALS: BP 152/90
--- NOTE | 2019-10-09 09:00 | NUR ---
Occupational Therapy evaluation completed on 4 with full eval to follow. Precautions include dizziness intermittently,fall risk, low complexity level 83628. Recommend no further OT at this time. Patient does not feel she needs any OT. She is able to perform ADLs and functional mobility without a device at indep level. Thank you. Zev Cai Otr/l
--- NOTE | 2019-10-09 11:36 | NUR ---
GROUND SURVEILLANCE SYSTEMS OPERATOR spoke with the patient and provided her with resources on Assisted Living, Home Health Agency, and [facility]. -MAURIZIO Napier
[2019-10-09 12:00] VITALS: BP 165/90
--- NOTE | 2019-10-09 12:30 | NUR ---
PT LEFT DR JAME LORA ON FLOOR AND SPOKE TO PATIENT PRIOR TO LEAVING. IV REMOVED AND PRESSURE DRESSING APPLIED. HEART MONITOR RETURNED TO FLOOR.
== END 2019-10-09 12:30 | disposition left against medical advice (07) | DRG 253 ==
LOC: ED 10:26 → 4E 11:23 → EDHOLD 11:23 → 4E 11:44
PROVIDERS: Nurse Practitioner Family; Registered Nurse; ADMIT Emergency Medicine
DX: K92.2 Gastrointestinal hemorrhage, unspecified (principal); F32.9 Major depressive disorder, single episode, unspecified; E89.0 Postprocedural hypothyroidism; F17.210 Nicotine dependence, cigarettes, uncomplicated; G89.29 Other chronic pain; F41.1 Generalized anxiety disorder; K21.9 Gastro-esophageal reflux disease without esophagitis; I10 Essential (primary) hypertension; D64.9 Anemia, unspecified; E78.00 Pure hypercholesterolemia, unspecified; I25.10 Atherosclerotic heart disease of native coronary artery without angina pectoris; R19.5 Other fecal abnormalities; Z53.29 Procedure and treatment not carried out because of patient's decision for other reasons; Z82.0 Family history of epilepsy and other diseases of the nervous system; Z88.6 Allergy status to analgesic agent; Z88.1 Allergy status to other antibiotic agents

== ENCOUNTER → 2020-04-12 | Outpatient (CLI) | payer OTHER ==
[~2020-04-12] MED LIST changes: +VISTARIL25 MG PO; +VITAMIN D31000 UNI1 PO
== END | disposition home or self-care (01) ==
LOC: MAMMO 11:28
DX: Z12.31 Encounter for screening mammogram for malignant neoplasm of breast (principal)

== ENCOUNTER → 2020-05-06 | Outpatient (CLI) | payer OTHER | END | disposition home or self-care (01) | LOC: COVID19 00:11 | DX: Z20.828 Contact with and (suspected) exposure to other viral communicable diseases (principal) ==

== ENCOUNTER → 2020-10-02 | Outpatient (CLI) | payer OTHER ==
[2020-10-01 16:59] LABS: BASO # 0.1 10*3/uL (0.0-0.1); BASO % 0.6 % (0.0-1.0); EOS # 0.3 10*3/uL (0.0-0.4); EOS % 3.3 % (1.0-4.0); HEMATOCRIT 29.4 % (37.0-47.0); LYMPH # 1.6 10*3/uL (1.3-4.4); LYMPH % 16.9 % (27.0-41.0); MEAN CORPUSCULAR HGB CONC 27.6 g/dl (33.0-37.0); MEAN PLATELET VOLUME 10.1 fl (9.6-12.3); MONO # 0.8 10*3/uL (0.1-1.0); MONO % 7.9 % (3.0-9.0); NEUT # 6.9 10*3/uL (2.3-7.9); NUCLEATED RED BLOOD CELL 0.1 10*3/uL (0.0-0.0); NUCLEATED RED BLOOD CELL 0.6 % (0.0-0.0); PLATELET COUNT AUTOMATED 246 10*3/uL (130-400); RED BLOOD COUNT 3.38 10*6/uL (4.10-5.10); RED CELL DISTRI WIDTH 18.4 % (0-14.5); WHITE BLOOD COUNT 9.7 10*3/uL (4.8-10.8)
[2020-10-02] VITALS (10 sets, daily range): BP systolic 108–152; BP diastolic 54–80
--- NOTE | 2020-10-02 11:00 | NUR ---
PATIENT ON FLOOR FOR BLOOD TRANSFUSION, TO RECEIVE PRBC X2. VSS STABLE. #20 IV INSERTED INTO RIGHT FOREARM WITH NO DIFFICULTY. PT TOLERATED WELL. CALL L IGHT IS WITHIN REACH.
--- NOTE | 2020-10-02 11:17 | NUR ---
BLOOD TRANSFUSION INITIATED AT THIS TIME.
--- NOTE | 2020-10-02 13:54 | NUR ---
FIRST UNIT OF BLOOD COMPLETE AT THIS TIME.
--- NOTE | 2020-10-02 14:54 | NUR ---
SECOND BLOOD TRANSFUSION STARTED AT THIS TIME.
--- NOTE | 2020-10-02 17:45 | NUR ---
BLOOD TRANSFUSION COMPLETE AT THIS TIME. PATIENT REFUSED TO STAY FOR 30 MIN POST TRANSFUSION VITALS. HEPLOCK DISCONTINUED AND PT AMBULATORY OFF FLOOR.
== END | disposition home or self-care (01) ==
LOC: TRNFUSION 04:08
PROVIDERS: ATTEND Physician Assistant
DX: D50.0 Iron deficiency anemia secondary to blood loss (chronic) (principal); K92.2 Gastrointestinal hemorrhage, unspecified